=== PATIENT | male | born 1990 | race American Indian/Alaskan Native ===

== ENCOUNTER 2017-05-19 19:11 | Emergency (ER) | payer SELFPAY ==
[2017-05-19 19:33] VITALS: BP 127/63
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
== END 2017-05-19 23:20 | disposition home or self-care (01) ==
LOC: ED 19:11
DX: M54.5 Low back pain (principal); M79.605 Pain in left leg; F12.10 Cannabis abuse, uncomplicated; F17.200 Nicotine dependence, unspecified, uncomplicated
CPT/HCPCS: 72100; 99283

== ENCOUNTER 2017-12-25 10:25 | Emergency (ER) | payer SELFPAY ==
[2017-12-25 10:35] VITALS: BP 119/73
[2017-12-25] MEDS ORDERED: BANOPHEN PO ONE (11:35)
[2017-12-25] MEDS ORDERED: FIORICET PO ONE (11:36)
[2017-12-25] MEDS ORDERED: REGLAN IV ONE (11:36)
--- NOTE | 2017-12-25 11:44 | Emergency Department Report ---
ED General Adult HPI - General Chief complaint: Headache Stated complaint: SEVERE HEADACHE Time Seen by Provider: 12/25/17 11:32 Source: patient, EMS Mode of arrival: Ambulatory Limitations: No Limitations - History of Present Illness Initial comments: Patient has to be awaken every 4 to history but complains of a headache for the last 2 days. He describes the headache as diffuse and throbbing in nature. He endorses a history of migraines to me although he denies this initially checking in. States he has not had a headache in over 6 months and also states this is not the worst headache of his life. Patient denies fever, chest pain, abdominal pain. There are no other associated complaints or symptoms - Related Data Previous Rx's Medication Instructions Recorded Last Taken Type Ibuprofen [Motrin] 800 mg PO Q8HR PRN #14 tablet 05/19/17 Unknown Rx Butalb/Acetaminophen/Caffeine 1 cap PO Q6HR PRN #24 cap 12/25/17 Unknown Rx [Fioricet 50-300-40 mg CAP] Allergies Allergy/AdvReac Type Severity Reaction Status Date / Time No Known Allergies Allergy Verified 12/25/17 10:33 ED Review of Systems ROS: Stated complaint: SEVERE HEADACHE Other details as noted in HPI Constitutional: denies: chills, fever Eyes: denies: eye pain, eye discharge, vision change ENT: denies: ear pain, throat pain Respiratory: denies: cough, shortness of breath, wheezing Cardiovascular: denies: chest pain, palpitations Endocrine: no symptoms reported Gastrointestinal: denies: abdominal pain, nausea, diarrhea Genitourinary: denies: urgency, dysuria Musculoskeletal: denies: back pain, joint swelling, arthralgia Skin: denies: rash, lesions Neurological: denies: headache, weakness, paresthesias Psychiatric: denies: anxiety, depression Hematological/Lymphatic: denies: easy bleeding, easy bruising ED Past Medical Hx - Past Medical History Previous Medical History?: No - Surgical History Past Surgical History?: No - Social History Smoking Status: Current Every Day Smoker Substance Use Type: Alcohol, Marijuana - Medications Home Medications: Home Medications Medication Instructions Recorded Confirmed Last Taken Type Ibuprofen [Motrin] 800 mg PO Q8HR PRN #14 tablet 05/19/17 Unknown Rx Butalb/Acetaminophen/Caffeine 1 cap PO Q6HR PRN #24 cap 12/25/17 Unknown Rx [Fioricet 50-300-40 mg CAP] ED Physical Exam - General Limitations: No Limitations General appearance: alert, in no apparent distress - Head Head exam: Present: atraumatic, normocephalic - Eye Eye exam: Present: normal appearance - ENT ENT exam: Present: mucous membranes moist - Neck Neck exam: Present: normal inspection - Respiratory Respiratory exam: Present: normal lung sounds bilaterally. Absent: respiratory distress - Cardiovascular Cardiovascular Exam: Present: regular rate, normal rhythm. Absent: systolic murmur, diastolic murmur, rubs, gallop - GI/Abdominal GI/Abdominal exam: Present: soft, normal bowel sounds - Rectal Rectal exam: Present: deferred - Extremities Exam Extremities exam: Present: normal inspection - Back Exam Back exam: Present: normal inspection - Neurological Exam Neurological exam: Present: alert, oriented X3, CN II-XII intact, normal gait, reflexes normal. Absent: motor sensory deficit - Psychiatric Psychiatric exam: Present: normal affect, normal mood - Skin Skin exam: Present: warm, dry, intact, normal color. Absent: rash ED Course Vital Signs 12/25/17 10:33 Temperature 97.8 F Pulse Rate 48 L Respiratory 18 Rate Blood Pressure 119/73 O2 Sat by Pulse 100 Oximetry ED Medical Decision Making - Medical Decision Making Patient given medications for his headache Critical care attestation.: If time is entered above; I have spent that time in minutes in the direct care of this critically ill patient, excluding procedure time. ED Disposition Clinical Impression: Headache Disposition: DC-01 TO HOME OR SELFCARE Is pt being admited?: No Does the pt Need Aspirin: No Condition: Stable Instructions: Acute Headache (ED) Prescriptions: Butalb/Acetaminophen/Caffeine [Fioricet 50-300-40 mg CAP] 1 cap PO Q6HR PRN #24 cap PRN Reason: Headache Referrals: PRIMARY CARE, [Primary Care Provider] - 3-5 Days Time of Disposition: 11:43
[2017-12-25] MEDS ORDERED: BENADRYL PO ONE ×2 (11:49→11:55)
[2017-12-25] MEDS ORDERED: REGLAN IM ONE (11:56)
== END 2017-12-25 12:06 | disposition home or self-care (01) ==
LOC: ED 10:25
DX: G43.909 Migraine, unspecified, not intractable, without status migrainosus (principal); F17.200 Nicotine dependence, unspecified, uncomplicated; F12.10 Cannabis abuse, uncomplicated
CPT/HCPCS: 96372; 99283; J2765; J2930